=== PATIENT | male | born 1970 | race Caucasian/White ===

== ENCOUNTER 2022-02-13 06:34 | Emergency (ER) | payer OTHER ==
[~2022-02-13] VITALS: Ht 175.3 cm; Wt 91.0 kg
[2022-02-13] MEDS ORDERED: KETOROLAC 60MG/2ML VIAL IM ONE (07:00)
[2022-02-13] MEDS ORDERED: IBUP-2029 MT (07:52)
[2022-02-13] MEDS ORDERED: CYCL10TA7 MT (07:52)
[2022-02-13 07:57] VITALS: BP 158/81
== END 2022-02-13 08:20 | disposition home or self-care (01) ==
LOC: ER 06:51
DX: S10.93XA Contusion of unspecified part of neck, initial encounter (principal); R00.1 Bradycardia, unspecified; V43.52XA Car driver injured in collision with other type car in traffic accident, initial encounter; Y93.89 Activity, other specified; Y92.89 Other specified places as the place of occurrence of the external cause; Y99.8 Other external cause status
CPT/HCPCS: 70450; 72125; 73560; 96372; 99284; J1885